=== PATIENT | male | born 1990 | race Caucasian/White ===

== ENCOUNTER 2023-11-18 15:30 | Emergency (ER) | payer BC, OTHER ==
[2023-11-18] MEDS ORDERED: Bacitracin 1 PK ONE (16:31)
[2023-11-18] MEDS ORDERED: Boostrix 0.5 ML (Tdap) VIAL (>/=7 yrs of age) ONE (16:31)
== END 2023-11-18 16:41 | disposition home or self-care (01) ==
LOC: ERS 15:30
DX: S80.212A Abrasion, left knee, initial encounter (principal); F17.290 Nicotine dependence, other tobacco product, uncomplicated; Z23 Encounter for immunization; V48.5XXA Car driver injured in noncollision transport accident in traffic accident, initial encounter
CPT/HCPCS: 90471; 90715